=== PATIENT | male | born 1990 | race Two or more races ===

== ENCOUNTER 2023-05-28 11:41 | Emergency (ER) | payer MEDICAID, OTHER ==
[~2023-05-28] VITALS: Ht 172.7 cm; Wt 79.0 kg
[2023-05-28 12:50] VITALS: BP 134/91; PULSE 80; RESP 16; TEMP 97.8; O2SAT 100
[2023-05-28] MEDS ORDERED: TETANUS-DIPTH-ACEL PERTUSSIS 0.5ML SYR Tdap IM ONE (13:45)
[2023-05-28] MEDS ORDERED: LIDOCAINE 1% HCL (LOCAL ANESTH.) INJ 20ML MDV ID ONE (13:45)
[2023-05-28] MEDS ORDERED: CEPH500C PO (14:29)
[2023-05-28] MEDS ORDERED: IOHEXOL 350 MG/ML 100ML IJ ONE (20:12)
== END 2023-05-28 15:31 | disposition home or self-care (01) ==
LOC: ER 11:41
DX: S61.512A Laceration without foreign body of left wrist, initial encounter (principal); W26.8XXA Contact with other sharp object(s), not elsewhere classified, initial encounter; Y93.89 Activity, other specified; Y92.89 Other specified places as the place of occurrence of the external cause; Y99.8 Other external cause status
CPT/HCPCS: 12001; 90471; 90715; 99283; J2001; Q9967